=== PATIENT | male | born 1995 | race Hispanic/Latino ===

== ENCOUNTER 2016-09-04 13:47 | Emergency (ER) | payer OTHER ==
[~2016-09-04] VITALS: Ht 165.1 cm; Wt 81.6 kg
[2016-09-04] MEDS ORDERED: KETOROLAC 60 MG/2 ML VIAL IM ONE (14:00)
[2016-09-04] MEDS ORDERED: morphine INJ 10 MG/ML 1ML (SYR OR VIAL) IM ONE (14:00)
[2016-09-04] MEDS ORDERED: HYDR-757 PO (14:04)
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
[2016-09-04 14:36] VITALS: BP 125/70
[2016-09-04] MEDS ORDERED: BACITRACIN OINTMENT 28 GM TUBE TOP SCH (21:00)
== END 2016-09-04 14:36 | disposition home or self-care (01) ==
LOC: ER 13:52
DX: T23.262A Burn of second degree of back of left hand, initial encounter (principal); X08.8XXA Exposure to other specified smoke, fire and flames, initial encounter; Y99.8 Other external cause status
CPT/HCPCS: 99282

== ENCOUNTER 2016-09-30 06:41 | Observation (INO) | payer OTHER ==
[2016-09-30] VITALS (12 sets, daily range): BP systolic 105–138; BP diastolic 40–74
[~2016-09-30] VITALS: Ht 165.1 cm; Wt 68.0 kg
[~2016-09-30 06:41] MED LIST: HYDR-757 PO
[2016-09-30] MEDS ORDERED: LORazepam INJ 2 MG/ML (ATIVAN) VIAL ONE (06:45)
[2016-09-30 07:02] LABS: RED BLOOD COUNT 5.01 10^6/uL (4.35-5.85); RED CELL DISTRIBUTION WIDTH 12.6 % (10.0-14.5); WHITE BLOOD COUNT 15.2 10^3/uL (4.3-11.0)
[2016-09-30] MEDS ORDERED: NS IV 1000 ML 1,000 ML ONE ×2 (07:17→09:46)
[2016-09-30 07:20] LABS: ALANINE AMINOTRANSFERASE 67 U/L (0-55); ALBUMIN 4.6 GM/DL (3.2-4.5); ALCOHOL 222 MG/DL (<10); ANION GAP 13 MMOL/L (5-14); ASPARTATE AMINO TRANSFERASE 117 U/L (5-34); BILIRUBIN,DIRECT 0.1 MG/DL (0.0-0.3); BILIRUBIN,INDIRECT 0.3 MG/DL; BILIRUBIN,TOTAL 0.4 MG/DL (0.1-1.0); BLOOD UREA NITROGEN 10 MG/DL (7-18); BUN/CREATININE RATIO 11 (0-20); CARBON DIOXIDE 22 MMOL/L (21-32); CHLORIDE 108 MMOL/L (98-107); CREATININE SERUM 0.94 MG/DL (0.60-1.30); GFR ESTIMATED > 60; GLUCOSE 116 MG/DL (70-105); HEMOLYSIS 13 (-100-29); ICTERUS 0.6 (-100-1.9); LIPEMIA 8 (-100-49); POTASSIUM 3.4 MMOL/L (3.6-5.0); SODIUM 143 MMOL/L (135-145); TOTAL PROTEIN 8.1 GM/DL (6.4-8.2)
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
[2016-09-30] MEDS ORDERED: NS 100 ML (IVPB) BAG IV ONE (08:00)
[2016-09-30] MEDS ORDERED: IOHEXOL 350 MG/ML 100 ML (OMNIPAQUE 350) VIAL IV ONE (08:00)
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
[2016-09-30] MEDS ORDERED: TETANUS,DIPTH,PERTUSS P/F (BOOSTRIX) 0.5 ML VIAL IM ONE (08:30)
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
[2016-09-30 10:29] LABS: BILIRUBIN,URINE NEGATIVE (NEGATIVE); KETONES,URINE NEGATIVE (NEGATIVE); LEUKOCYTE ESTERASE ,URINE NEGATIVE (NEGATIVE); NITRITE,URINE NEGATIVE (NEGATIVE); PH,URINE 5 (5-9); PROTEIN,URINE 3+ (NEGATIVE); UROBILINOGEN,URINE NORMAL (NORMAL)
[2016-09-30] MEDS ORDERED: ONDANSETRON 4 MG/2 ML (SDV) Z0FRAN IV PRN (10:30)
[2016-09-30] MEDS ORDERED: CATHETER FLUSH 10 ML SYR IV PRN (10:30)
[2016-09-30] MEDS: D5 1/2 NS W/KCL 20 MEQ/L 1,000 ML IV SCH ×2 (10:32→18:00)
[2016-09-30 10:57] LABS: SQUAMOUS EPITHELIAL CELL,UR RARE /HPF
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
[2016-09-30] MEDS ORDERED: NEO/POLY/BAC (NEOSPORIN) OINT 15 GM TUBE TOP SCH (21:00)
== END 2016-09-30 20:18 | disposition left against medical advice (07) ==
LOC: EDUNIT# 06:41 → ER 06:44 → ICU 09:29
PROVIDERS: ADMIT Surgery; ATTEND Surgery
DX: S01.81XA Laceration without foreign body of other part of head, initial encounter (principal); S50.311A Abrasion of right elbow, initial encounter; S50.312A Abrasion of left elbow, initial encounter; F10.129 Alcohol abuse with intoxication, unspecified; Y90.7 Blood alcohol level of 200-239 mg/100 ml; V47.6XXA Car passenger injured in collision with fixed or stationary object in traffic accident, initial encounter; Y92.414 Local residential or business street as the place of occurrence of the external cause; Y99.8 Other external cause status
CPT/HCPCS: 36415; 70450; 71010; 71260; 72125; 74177; 80048; 80076; 80306; 80320; 81000; 85027; 86850; 86900; 86901; 87088; 90715; 93041; G0378